=== PATIENT | female | born 1985 | race Caucasian/White ===

== ENCOUNTER 2018-09-19 10:49 | Emergency (ER) | payer MEDICAID ==
--- NOTE | 2018-09-19 11:10 | EDPHY ---
H & P Time Seen by Provider: 09/19/18 10:53 HPI/ROS: CHIEF COMPLAINT: "I broke my wrist" HISTORY OF PRESENT ILLNESS: 32-year-old [id number] female was in [place] 8 days ago, slipped on mud fell on outstretched left hand seen at a local emergency department diagnosed with a nondisplaced, extra-articular fracture of the distal radius, splinted with a Velcro thumb spica and told to follow up with Orthopedics when she returned. She returned from [place] last night, went to Urgent Care was referred to the ER for follow-up. She denies: Paresthesia, sensory motor deficit, discoloration PHYSICAL EXAM (Prior to examination, patient consented to physical exam, hands were washed and my usual and customary physical exam procedures followed) 1) GENERAL: Well-developed, well-nourished, alert and oriented. Appears to be in no acute distress. 2) HEAD: Normocephalic 3) HEENT: Pupils equal, round, reactive to light bilaterally. 4) LUNGS: Breathing comfortably. 5) MUSCULOSKELETAL: Tender to palpation distal radius. No deformity no angulation. Soft compartments. Normal coloration. 6) SKIN: Intact 7) VASCULAR: pulses and cap refill present are brisk 8) NEUROLOGIC: Radial, ulnar, median nerve function intact with no deficits appreciated on exam DIFFERENTIAL DIAGNOSIS: in no particular order including but not limited to fracture, sprain, compartment syndrome Smoking Status: Never smoked Constitutional: Initial Vital Signs Temperature (C) 36.5 C 09/19/18 10:52 Heart Rate 79 09/19/18 10:52 Respiratory Rate 18 09/19/18 10:52 Blood Pressure 123/85 H 09/19/18 10:52 O2 Sat (%) 97 09/19/18 10:52 O2 Delivery Mode Room Air Allergies/Adverse Reactions: No Known Allergies Allergy (Unverified 09/19/18 10:56) Home Medications: Medication Instructions Recorded NK [No Known Home Meds] 09/19/18 MDM/Departure - MDM ED Course/Re-evaluation: The patient has with her a screen shot of the x-ray obtained in [place]. This appears to be an extra-articular nondisplaced distal radius fracture however the screen shot is nondiagnostic. At this time I do not think that repeat x- rays indicated from the emergency department. I have recommend follow up with Orthopedics and have given her this referral information. She has no evidence of neurovascular compromise. No evidence of compartment syndrome at this time She feels comfortable being discharged. Patient feels comfortable being discharged. All questions and concerns addressed by myself. Patient given my usual and customary discharge precautions and instructions regarding their clinical impression. Care of patient under supervision of secondary supervising physician Dr Tyrel Mario. - Depart Disposition: Home, Routine, Self-Care Clinical Impression: Fracture of left distal radius Qualifiers: Encounter type: initial encounter Fracture type: closed Fracture morphology: other fracture Qualified Code(s): S52.592A - Other fractures of lower end of left radius, initial encounter for closed fracture Condition: Good Instructions: Wrist Fracture in Adults (ED) Additional Instructions: Return to the ER immediately if you experience discoloration, have worsening pain, numbness, tingling, or any other symptoms that concern you. If you received x-rays in the emergency department today, be advised, that ligamentous , tendon, muscular, and other non-bony injury cannot be fully ruled out. Try to keep your affected extremity elevated above the level of your chest, and keep cold packs on the affected area, for the next 48 hours. Referrals: Bob Sebastian MD [Medical Doctor] - 1-2 days without fail
[2018-09-19 11:17] VITALS: BP 122/78
--- NOTE | 2018-09-19 12:40 | ASMTCMCOM ---
CM Note CM Note Notes: Met with patient to discuss follow up with orthopedics. ED report/referral faxed to [facility] with request to contact patient directly for scheduling. Patient has contact information as well and understands she may call to schedule as well CM available prn Date Signed: 09/19/2018 12:39 PM Electronically Signed By:Darleen Moncada RN
== END 2018-09-19 11:29 | disposition home or self-care (01) ==
DX: S52.552D Other extraarticular fracture of lower end of left radius, subsequent encounter for closed fracture with routine healing (principal); W01.0XXD Fall on same level from slipping, tripping and stumbling without subsequent striking against object, subsequent encounter; Y99.9 Unspecified external cause status